=== PATIENT | female | born 1960 | race Caucasian/White ===

== ENCOUNTER → 2016-06-13 | Outpatient (CLI) | payer BC ==
[~2016-06-13] MED LIST: ALLOPURINOL100 MG PO; AMITRIPTYLINE H25 M1 PO; AMOXICILLIN/CLA1 TA1 PO; ASPIRIN E.C. 8181 MG PO; ATIVAN 0.50.5 MG/TAB PO; ATOXIMETIN-B1 CAP PO; CENTRUM SILVER1 CTB PO; ELITE MAGNESIUM1 TAB PO; EPA FISH OIL1000 MG PO; FISH OIL CONCEN1 SGL PO; FLAX SEED OIL1000 MG PO; GARLIC1 TAB PO; GARLIC1000 MG PO; GINKO BILOBA60 MG PO; GLUCOPHAGE XR750 MG PO; GLUCOSAMINE500 M2 PO; HCTZ12.5TAB; LEVOTHYROXIN0.075 MG PO; LEXAPRO10 MG PO; LISINOPRIL AND1 TA1 PO; METFORMIN1000 MG PO; NEXIUM 40MG40 MG PO; NEXIUM40 MG PO; OSTEO-BI-FLEX 21 TAB PO; POTASSIUM20 MEQ PO; PRAVACHOL 40MG40 MG PO; PRAVACHOL10 MG PO; PRINZIDE 12.5 M1 TA1 PO; UROCIT-K 1010 MEQ PO; UTI CRANBERRY480 MG PO; VITAMIN B-1000 MCG/T PO; VITAMIN C PUR1000 MG PO; VITAMIN E1000 U/CAP PO; [UNRECOGNIZED DRUG - REMARK]
== END ==
LOC: MC.RAD 09:56
DX: Z12.31 Encounter for screening mammogram for malignant neoplasm of breast (principal)

== ENCOUNTER → 2016-08-02 | Outpatient (CLI) | payer BC | LOC: COL.VAS 13:44 | DX: I34.0 Nonrheumatic mitral (valve) insufficiency (principal); I20.8 Other forms of angina pectoris ==

== ENCOUNTER → 2018-02-07 | Outpatient (CLI) | payer BC | LOC: MC.RAD 07:36 | DX: Z12.31 Encounter for screening mammogram for malignant neoplasm of breast (principal) ==

== ENCOUNTER → 2018-03-14 | Outpatient (CLI) | payer BC | LOC: COL.VAS 11:00 | DX: G45.3 Amaurosis fugax (principal) ==